=== PATIENT | female | born 1995 | race Caucasian/White ===

== ENCOUNTER 2018-04-09 09:47 | Emergency (ER) | payer OTHER ==
[~2018-04-09] VITALS: Ht 162.6 cm; Wt 94.0 kg
[2018-04-09 10:42] LABS: HEMATOCRIT 41.8 % (36.0-46.0); HEMOGLOBIN 14.6 G/DL (11.9-15.5); MCH 28.6 PG (29.0-34.0); MCHC 34.9 G/DL (30.0-36.0); PLATELET COUNT 295 K/uL (156-360); RBC DIS.WIDTH-CV 12.2 % (11.8-14.6); RBC DIS.WIDTH-SD 36.5 % (39-53); WHITE BLOOD COUNT 8.9 K/uL (4.1-10.2)
[2018-04-09 12:08] LABS: CHLORIDE 106 mEq/L (99-109); POTASSIUM 3.6 mEq/L (3.7-5.4); SODIUM 139 mEq/L (136-147)
[2018-04-09 12:09] LABS: GLUCOSE 88 mg/dL (70-99)
[2018-04-09 12:13] LABS: CREATININE 0.7 mg/dL (0.6-1.3); GFR ESTIMATE (CALCULATED) > 59 mL/min/
[2018-04-09 12:14] LABS: UREA NITROGEN (BUN) 6 mg/dL (9-23)
[2018-04-09 12:31] LABS: ALBUMIN 4.4 g/dL (3.2-4.8)
[2018-04-09 12:34] LABS: TOTAL PROTEIN 8.5 g/dL (6.4-8.3)
[2018-04-09 12:36] LABS: TOTAL BILIRUBIN 0.5 mg/dL (0.0-1.0)
[2018-04-09 12:37] LABS: ALKALINE PHOSPHATASE 120 IU/L (3-129)
[2018-04-09 12:39] LABS: AST (GOT) 25 IU/L (2-34); DIRECT BILIRUBIN 0.2 mg/dL (0.0-0.3)
[2018-04-09 12:40] LABS: ALT (GPT) 23 IU/L (3-49); LIPASE 29 U/L (1.0-51.0)
[2018-04-09 12:46] LABS: QUANTITATIVE HCG < 4.0 MIU/ML
[2018-04-09] MEDS ORDERED: ZOFRAN ODT4 MG PO (14:25)
[2018-04-09] MEDS ORDERED: NORCO 5/3251 TABLET PO (14:25)
[2018-04-09 15:09] VITALS: BP 144/84
== END 2018-04-09 15:11 | disposition home or self-care (01) ==
LOC: EME 09:47
DX: K80.20 Calculus of gallbladder without cholecystitis without obstruction (principal); M54.6 Pain in thoracic spine; E66.9 Obesity, unspecified; Z68.35 Body mass index [BMI] 35.0-35.9, adult; J45.909 Unspecified asthma, uncomplicated
CPT/HCPCS: 71046; 76705; 80048; 80076; 83690; 84702; 85027; 93005; 99281; 99284

== ENCOUNTER 2018-06-27 16:32 | Emergency (ER) | payer BC ==
[~2018-06-27] VITALS: Ht 162.6 cm; Wt 96.9 kg
[~2018-06-27 16:32] MED LIST: NORCO 5/3251 TABLET PO; ZOFRAN ODT4 MG PO
[2018-06-27 17:33] LABS: HEMOGLOBIN 14.5 G/DL (11.9-15.5); MCH 28.6 PG (29.0-34.0); MCHC 34.5 G/DL (30.0-36.0); MCV 82.8 FL (83-99); PLATELET COUNT 295 K/uL (156-360); RBC DIS.WIDTH-CV 12.4 % (11.8-14.6); RBC DIS.WIDTH-SD 37.2 % (39-53); RED BLOOD COUNT 5.07 M/uL (3.80-5.20); WHITE BLOOD COUNT 10.2 K/uL (4.1-10.2)
[2018-06-27 17:43] LABS: ALBUMIN 4.3 g/dL (3.2-4.8)
[2018-06-27 17:44] LABS: CHLORIDE 105 mEq/L (99-109); SODIUM 140 mEq/L (136-147)
[2018-06-27 17:46] LABS: GLUCOSE 99 mg/dL (70-99)
[2018-06-27 17:48] LABS: TOTAL BILIRUBIN 0.3 mg/dL (0.0-1.0)
[2018-06-27 17:49] LABS: ALKALINE PHOSPHATASE 106 IU/L (3-129)
[2018-06-27 17:50] LABS: CREATININE 0.7 mg/dL (0.6-1.3); GFR ESTIMATE (CALCULATED) > 59 mL/min/
[2018-06-27 17:51] LABS: AST (GOT) 20 IU/L (2-34); UREA NITROGEN (BUN) 7 mg/dL (9-23)
[2018-06-27 17:52] LABS: ALT (GPT) 19 IU/L (3-49)
[2018-06-27 17:58] LABS: QUANTITATIVE HCG < 4.0 MIU/ML
[2018-06-27 18:46] LABS: THYROTROPIN (TSH) 2.5 MIU/L (0.4-5.5)
[2018-06-27 19:07] VITALS: BP 123/73
== END 2018-06-27 19:08 | disposition home or self-care (01) ==
LOC: EME 16:32
PROVIDERS: Physician Assistant
DX: R09.1 Pleurisy (principal); J45.909 Unspecified asthma, uncomplicated
CPT/HCPCS: 71046; 80053; 84443; 84702; 85027; 85379; 93005; 99281; 99283